=== PATIENT | male | born 1965 | race Caucasian/White ===

== ENCOUNTER 2017-08-04 19:01 | Emergency (ER) | payer OTHER ==
[~2017-08-04] VITALS: Ht 180.3 cm; Wt 61.1 kg
[~2017-08-04 19:01] MED LIST: AMOXICILLIN500 MG PO; FLONASE16 G1 BOTH NARES; MOTRIN400 MG PO; MULTI-DAY VITA1 EACH PO; NAPROSYN500 MG PO; OYSTER SHELL W1 EACH PO; TYLENOL REGULA325 MG PO; VALIUM10 MG PO; VITAMIN C500 M1 PO
[2017-08-04 21:17] VITALS: BP 121/90
== END 2017-08-04 21:18 | disposition home or self-care (01) ==
LOC: EME 19:01
DX: R09.89 Other specified symptoms and signs involving the circulatory and respiratory systems (principal); F79 Unspecified intellectual disabilities; F32.9 Major depressive disorder, single episode, unspecified; Z96.649 Presence of unspecified artificial hip joint
CPT/HCPCS: 71020; 99281; 99284

== ENCOUNTER → 2017-12-02 | Outpatient (CLI) | payer OTHER | END | disposition home or self-care (01) | DX: R13.10 Dysphagia, unspecified (principal) | CPT/HCPCS: 92611 GN; G8996 GN; G8997 GN; G8998 GN ==